=== PATIENT | male | born 1985 | race Caucasian/White ===

== ENCOUNTER 2016-10-08 16:26 | Emergency (ER) | payer OTHER ==
[2016-10-08 16:52] VITALS: BP 144/88; PULSE 83; RESP 18; TEMP 99.1
--- NOTE | 2016-10-08 17:11 | ED ---
Skin/Abscess/FB HPI - General Chief complaint: Skin/Abscess/Foreign Body Stated complaint: Bug flew in ear Time Seen by Provider: 10/08/16 17:00 Source: patient, RN notes reviewed Mode of arrival: ambulatory Limitations: no limitations - History of Present Illness Initial comments: 30-year-old male present emergency department for left ear possible bug in ear. Patient states that this happened approximately 30 or 40 minutes ago. Patient states that he felt some buzzing. He initially states that he felt a bug in his ear area and states he went over have it states it felt like it went in. Patient states the bleeding flapping sensation has gone he does have some irritation. Review of Systems ROS Statement: Those systems with pertinent positive or pertinent negative responses have been documented in the HPI. ROS Other: All systems not noted in ROS Statement are negative. Past Medical History Past Medical History: No Reported History History of Any Multi-Drug Resistant Organisms: None Reported Past Surgical History: No Surgical Hx Reported Past Psychological History: No Psychological Hx Reported Smoking Status: Never smoker Past Alcohol Use History: None Reported Past Drug Use History: None Reported General Exam Limitations: no limitations General appearance: alert, in no apparent distress Head exam: Present: atraumatic, normocephalic, normal inspection Eye exam: Present: normal appearance, PERRL, EOMI. Absent: scleral icterus, conjunctival injection, periorbital swelling ENT exam: Present: normal exam, normal oropharynx, mucous membranes moist, TM's normal bilaterally, normal external ear exam, other (No visualized foreign body or bug) Neck exam: Present: normal inspection, full ROM. Absent: tenderness, meningismus, lymphadenopathy Respiratory exam: Present: normal lung sounds bilaterally. Absent: respiratory distress, wheezes, rales, rhonchi, stridor Cardiovascular Exam: Present: regular rate, normal rhythm, normal heart sounds. Absent: systolic murmur, diastolic murmur, rubs, gallop, clicks Course Vital Signs 10/08/16 16:50 Temperature 99.1 F Pulse Rate 83 Respiratory 18 Rate Blood Pressure 144/88 O2 Sat by Pulse 100 Oximetry Medical Decision Making - Medical Decision Making 30-year-old male presented for possible bug in left ear canal. I did not visualize any blood. Patient it was flushed with saline patient well no foreign body removed patient states he does feel better at this time and states that she started feeling better prior. Patient be discharged at this time return parameters were discussed. Disposition Clinical Impression: Arthropod bite of left ear canal Disposition: HOME SELF-CARE Condition: Stable Instructions: Earache (ED) Additional Instructions: Please return to the Emergency Department if symptoms worsen or any other concerns. Referrals: None,Stated [Primary Care Provider] - 1-2 days Time of Disposition: 17:11
== END 2016-10-08 17:22 | disposition home or self-care (01) ==
LOC: EC 16:26
DX: S00.462A Insect bite (nonvenomous) of left ear, initial encounter (principal); W57.XXXA Bitten or stung by nonvenomous insect and other nonvenomous arthropods, initial encounter
CPT/HCPCS: 99282

== ENCOUNTER → 2016-10-22 | Outpatient (CLI) | payer OTHER ==
--- NOTE | 2016-10-22 15:55 | XR ---
EXAMINATION TYPE: XR spine complete AP and Lat DATE OF EXAM: 10/22/2016 COMPARISON: NONE HISTORY: Unspecified pain TECHNIQUE: Frontal and lateral views entire spine are acquired. Additional open mouth view upper cerv ical spine and swimmer's view cervical thoracic junction are acquired. FINDINGS: Spine shows satisfactory alignment without evidence of acute fracture or dislocation. Verte bral body heights and disc space heights are fairly well-maintained. No significant spurring is seen. Overlying soft tissue is unremarkable. C1-C2 articulation is within normal limits on the open mouth view. IMPRESSION: Unremarkable study
== END ==
LOC: RADXRMAIN 15:31
PROVIDERS: ATTEND Internal Medicine
DX: M54.5 Low back pain (principal); M54.6 Pain in thoracic spine; M54.2 Cervicalgia
CPT/HCPCS: 72082

== ENCOUNTER 2021-01-21 11:53 | Inpatient (IN) | payer OTHER ==
[2021-01-21 12:57] LABS: Basophils % (A) 0 %; Eosinophils # (A) 0.2 k/uL (0-0.7); Eosinophils % (A) 1 %; HCT 44.7 % (39.0-53.0); Lymphocytes # (A) 1.5 k/uL (1.0-4.8); Lymphocytes % (A) 11 %; MCH 30.4 pg (25.0-35.0); MCHC 33.6 g/dL (31.0-37.0); MCV 90.4 fL (80.0-100.0); Mean Platelet Volume 6.9; Monocytes # (A) 0.7 k/uL (0-1.0); Monocytes % (A) 5 %; Neutrophils % (A) 82 %; Platelet Count 273 k/uL (150-450); RBC 4.95 m/uL (4.30-5.90); WBC 13.5 k/uL (3.8-10.6)
--- NOTE | 2021-01-21 13:03 | XR ---
EXAMINATION TYPE: XR knee complete RT DATE OF EXAM: 01/21/2021 CLINICAL HISTORY: Right knee pain for one week. TECHNIQUE: Three views of the right knee are obtained. COMPARISON: None. FINDINGS: There is no acute fracture/dislocation evident in right knee. The tri-compartment joint s paces appear within normal limits. Significant spurring is seen. Mild to moderate subcutaneous edema over the medial aspect is noted. Additional soft tissue swelling superficial infrapatellar level is n oted. IMPRESSION: As above.
[2021-01-21 13:09] LABS: ALT 31 U/L (4-49); AST 38 U/L (17-59); African American GFR (CKD) >90 (>60 ml/min/1.73 sqM); Albumin 4.5 g/dL (3.5-5.0); Alkaline Phosphatase 136 U/L (38-126); Anion Gap 11 mmol/L; Blood Urea Nitrogen 8 mg/dL (9-20); C Reactive Protein 8.9 mg/dL (<1.0); Calcium 9.3 mg/dL (8.4-10.2); Carbon Dioxide 26 mmol/L (22-30); Chloride 102 mmol/L (98-107); Glucose 116 mg/dL (74-99); Non-African American GFR(CKD) >90 (>60 ml/min/1.73 sqM); Potassium 4.5 mmol/L (3.5-5.1); Sodium 139 mmol/L (137-145); Total Bilirubin 0.9 mg/dL (0.2-1.3); Total Protein 7.8 g/dL (6.3-8.2)
[2021-01-21 13:13] LABS: INR 0.8 (<1.2); Partial Thromboplastin Time 26.7 sec (22.0-30.0); Prothrombin Time 9.3 sec (9.0-12.0)
--- NOTE | 2021-01-21 13:41 | ED ---
Extremity Problem HPI - General Chief complaint: Extremity Problem,Nontraumatic Stated complaint: knee swelling, fever Time Seen by Provider: 01/21/21 12:19 Source: patient, RN notes reviewed Mode of arrival: ambulatory Limitations: no limitations - History of Present Illness Initial comments: 35-year-old male presents emergency department with chief complaint of right leg pain, redness and swelling. Patient states started after working on a pool stat es that he had kneepads on but states he noticed a small johnny on anterior surface of his knee he states that the redness and swelling has increased. He's had no definite drainage patient states her is discomfort, tightness of the skin when he moves but denies any definite joint pain. Patient has no history of skin infections. Denies any prior knee surgery. - Related Data Home Medications Medication Instructions Recorded Confirmed Ibuprofen [Advil] 800 mg PO Q8HR PRN 01/21/21 01/21/21 Allergies Allergy/AdvReac Type Severity Reaction Status Date / Time No Known Allergies Allergy Verified 01/21/21 12:33 Review of Systems ROS Statement: Those systems with pertinent positive or pertinent negative responses have been documented in the HPI. ROS Other: All systems not noted in ROS Statement are negative. Past Medical History Past Medical History: No Reported History History of Any Multi-Drug Resistant Organisms: None Reported Past Surgical History: No Surgical Hx Reported Past Psychological History: No Psychological Hx Reported Smoking Status: Never smoker Past Alcohol Use History: None Reported Past Drug Use History: Marijuana General Exam Limitations: no limitations General appearance: alert, in no apparent distress Head exam: Present: atraumatic, normocephalic, normal inspection Eye exam: Present: normal appearance, PERRL, EOMI. Absent: scleral icterus, conjunctival injection, periorbital swelling ENT exam: Present: normal exam, mucous membranes moist Respiratory exam: Present: normal lung sounds bilaterally. Absent: respiratory distress, wheezes, rales, rhonchi, stridor Cardiovascular Exam: Present: regular rate, normal rhythm, normal heart sounds. Absent: systolic murmur, diastolic murmur, rubs, gallop, clicks Extremities exam: Present: other (Right knee there is small scab noted over the prepatellar region, erythema and swelling that extends down to the calf and anterior surface of the knee increased warmth, tenderness with palpation) Course Vital Signs 01/21/21 01/21/21 12:03 14:23 Temperature 100.7 F H 98.1 F Pulse Rate 89 84 Respiratory 16 18 Rate Blood Pressure 148/91 122/81 O2 Sat by Pulse 99 97 Oximetry Medical Decision Making - Medical Decision Making Patient be admitted for right leg cellulitis, prepatellar bursitis and bursitis patient does not have joint involvement at this time he is febrile was started on vancomycin. - Lab Data Result diagrams: 01/21/21 12:33 01/21/21 12:33 Lab Results 01/21/21 01/21/21 01/21/21 Range/Units 12:33 12:33 12:33 WBC 13.5 H (3.8-10.6) k/uL RBC 4.95 (4.30-5.90) m/uL Hgb 15.0 (13.0-17.5) gm/dL Hct 44.7 (39.0-53.0) % MCV 90.4 (80.0-100.0) fL MCH 30.4 (25.0-35.0) pg MCHC 33.6 (31.0-37.0) g/dL RDW 12.0 (11.5-15.5) % Plt Count 273 (150-450) k/uL MPV 6.9 Neutrophils % 82 % Lymphocytes % 11 % Monocytes % 5 % Eosinophils % 1 % Basophils % 0 % Neutrophils # 11.0 H (1.3-7.7) k/uL Lymphocytes # 1.5 (1.0-4.8) k/uL Monocytes # 0.7 (0-1.0) k/uL Eosinophils # 0.2 (0-0.7) k/uL Basophils # 0.0 (0-0.2) k/uL PT 9.3 (9.0-12.0) sec INR 0.8 (<1.2) APTT 26.7 (22.0-30.0) sec Sodium 139 (137-145) mmol/L Potassium 4.5 (3.5-5.1) mmol/L Chloride 102 (98-107) mmol/L Carbon Dioxide 26 (22-30) mmol/L Anion Gap 11 mmol/L BUN 8 L (9-20) mg/dL Creatinine 0.67 (0.66-1.25) mg/dL Est GFR (CKD-EPI)AfAm >90 (>60 ml/min/1.73 sqM) Est GFR (CKD-EPI)NonAf >90 (>60 ml/min/1.73 sqM) Glucose 116 H (74-99) mg/dL Plasma Lactic Acid Yousif (0.7-2.0) mmol/L Calcium 9.3 (8.4-10.2) mg/dL Total Bilirubin 0.9 (0.2-1.3) mg/dL AST 38 (17-59) U/L ALT 31 (4-49) U/L Alkaline Phosphatase 136 H (38-126) U/L C-Reactive Protein 8.9 H (<1.0) mg/dL Total Protein 7.8 (6.3-8.2) g/dL Albumin 4.5 (3.5-5.0) g/dL 01/21/21 Range/Units 12:33 WBC (3.8-10.6) k/uL RBC (4.30-5.90) m/uL Hgb (13.0-17.5) gm/dL Hct (39.0-53.0) % MCV (80.0-100.0) fL MCH (25.0-35.0) pg MCHC (31.0-37.0) g/dL RDW (11.5-15.5) % Plt Count (150-450) k/uL MPV Neutrophils % % Lymphocytes % % Monocytes % % Eosinophils % % Basophils % % Neutrophils # (1.3-7.7) k/uL Lymphocytes # (1.0-4.8) k/uL Monocytes # (0-1.0) k/uL Eosinophils # (0-0.7) k/uL Basophils # (0-0.2) k/uL PT (9.0-12.0) sec INR (<1.2) APTT (22.0-30.0) sec Sodium (137-145) mmol/L Potassium (3.5-5.1) mmol/L Chloride (98-107) mmol/L Carbon Dioxide (22-30) mmol/L Anion Gap mmol/L BUN (9-20) mg/dL Creatinine (0.66-1.25) mg/dL Est GFR (CKD-EPI)AfAm (>60 ml/min/1.73 sqM) Est GFR (CKD-EPI)NonAf (>60 ml/min/1.73 sqM) Glucose (74-99) mg/dL Plasma Lactic Acid Yousif 0.8 (0.7-2.0) mmol/L Calcium (8.4-10.2) mg/dL Total Bilirubin (0.2-1.3) mg/dL AST (17-59) U/L ALT (4-49) U/L Alkaline Phosphatase (38-126) U/L C-Reactive Protein (<1.0) mg/dL Total Protein (6.3-8.2) g/dL Albumin (3.5-5.0) g/dL Disposition Clinical Impression: Fever, Septic prepatellar bursitis of right knee, Cellulitis of right leg Disposition: ADMITTED IP TO THIS HOSP Referrals: None,Stated [Primary Care Provider] - 1-2 days
[2021-01-21] MEDS ORDERED: VANCOMYCIN IV PER PHARMACY 1 EACH MISC MISCELLANE PRN (15:02)
[2021-01-21] MEDS ORDERED: ACETAMINOPHEN TAB 325 MG TAB PO PRN (15:04)
[2021-01-21] MEDS ORDERED: NALOXONE 0.4 MG/ML 1 ML VIAL IV PRN (15:04)
[2021-01-21] MEDS ORDERED: VANCOMYCIN 1,250 MG in SODIUM CHLORIDE 0.9% 250 ML IVPB STA (15:05)
[2021-01-21 15:15] LABS: Erythrocyte Sedimentation Rate 23 mm/hr (0-15)
[2021-01-21] MEDS: SODIUM CHLORIDE 0.9% 1,000 ML IV SCH (15:37)
--- NOTE | 2021-01-21 15:59 | P.HPIM ---
History of Present Illness H&P Date: 01/21/21 Chief Complaint: Right knee pain and swelling This is a 35-year-old male with no significant past medical history that presented to the emergency room with right knee pain and swelling. Patient said that he works as a [employer] and occasionally he is down on his knee doing some work and always wear a knee pad. Patient said that last week he was doing some work for approximately 3 hours on his knees while wearing any pads. Subsequently he noted worsening pain in his right knee and swelling that is been progressing over the last week. Patient reported that the pain was getting significantly worse today and he is unable to bend his knee so he decided to come to the hospital for further management. On presentation, patient had a low-grade fever of 100.7 with mild leukocytosis. X-ray showed no acute findings with some subcutaneous edema. Patient was started on IV vancomycin and plan is to admit him to the hospital for further management. Review of Systems Review of system: 14 points review of systems were obtained and were negative except to what were mentioned in the HPI. Past Medical History Past Medical History: No Reported History History of Any Multi-Drug Resistant Organisms: None Reported Past Surgical History: No Surgical Hx Reported Past Psychological History: No Psychological Hx Reported Smoking Status: Never smoker Past Alcohol Use History: None Reported Past Drug Use History: Marijuana Medications and Allergies Home Medications Medication Instructions Recorded Confirmed Type Ibuprofen [Advil] 800 mg PO Q8HR PRN 01/21/21 01/21/21 History Allergies Allergy/AdvReac Type Severity Reaction Status Date / Time No Known Allergies Allergy Verified 01/21/21 12:33 Physical Exam Vitals: Vital Signs Temp Pulse Resp BP Pulse Ox 01/21/21 14:23 98.1 F 84 18 122/81 97 01/21/21 12:03 100.7 F H 89 16 148/91 99 Intake and Output 01/21/21 01/21/21 01/21/21 06:59 14:59 22:59 Other: Weight 73.936 kg General: The patient is awake and alert, in no distress Eye: there is normal conjunctiva bilaterally. Neck: The neck is supple, there is no JVD. Cardiovascular: Normal S1-S2, no S3-S4, no murmurs. Respiratory: Lungs clear to auscultation bilaterally Gastrointestinal: Abdomen is soft, nontender Musculoskeletal: There is no pedal edema. There is significant swelling of the right knee compared to the left. R Knee is warm and very tender to touch with no evidence of erythema. No open wounds. Neurological:. Speech is normal. Skin: Skin is warm and dry Results CBC & Chem 7: 01/21/21 12:33 01/21/21 12:33 Labs: Abnormal Lab Results - Last 24 Hours (Table) 01/21/21 01/21/21 Range/Units 12:33 12:33 WBC 13.5 H (3.8-10.6) k/uL Neutrophils # 11.0 H (1.3-7.7) k/uL ESR 23 H (0-15) mm/hr BUN 8 L (9-20) mg/dL Glucose 116 H (74-99) mg/dL Alkaline Phosphatase 136 H (38-126) U/L C-Reactive Protein 8.9 H (<1.0) mg/dL Assessment and Plan Assessment: 1. Right knee bursitis with possible mild cellulitis and questionable knee ef fusion. I would continue IV antibiotic with IV cefazolin. CRP and ESR only mildly elevated. Intermittent ice packing. Motrin 800 mg 3 times a day. Consulted orthopedic for further evaluation.
[2021-01-21] MEDS: HYDROcodone/APAP 5-325MG 1 EACH TAB PO PRN ×2 (17:03→19:12)
[2021-01-21] MEDS: IBUPROFEN 800 MG TAB PO SCH (17:06)
[2021-01-22] MEDS ORDERED: VANCOMYCIN 1,250 MG in SODIUM CHLORIDE 0.9% 250 ML IVPB SCH ×2
[2021-01-22] MEDS: IBUPROFEN 800 MG TAB PO SCH ×4 (00:29→23:06)
[2021-01-22] MEDS: SODIUM CHLORIDE 0.9% 1,000 ML IV SCH (06:39)
[2021-01-22] MEDS: HYDROcodone/APAP 5-325MG 1 EACH TAB PO PRN ×3 (09:23→20:30)
--- NOTE | 2021-01-22 10:02 | P.PN ---
Progress Note - Text Progress Note Date: 01/22/21 I saw the patient and agree with the consult by Kinza Burgos PA-C. Briefly, the patient was working on his knees last week, which is unusual for him, and he developed a "pimple" over the anterior aspect of the knee. He popped the "pimple" a few days later and expressed a small amount of pus. His knee became progressively more painful, erythematous and he developed a subjective fever. Yesterday his leg became swollen, very painful and he had a difficult time walking so he presented to the ED. He was admitted under IM and was started on IV antibiotics. Orthopaedics was consulted. This morning the patient feels slightly better. He denies fevers, chills or generalized malaise. The is mild swelling, erythema and warmth over the prepatellar bursa. There is minimal knee effusion and minimal pain with PROM of the knee. There is boggy swelling over the prepatellar bursa, but no kenneth abs cess or collection of fluid. The swelling and tenderness extends medially over the knee. Distally, the knee is mildly swollen, warm and there is diffuse perspiration over the entire leg. There is no calf tenderness. His clinical picture is consistent with septic prepatellar bursitis and overlying cellulitis. He has no evidence of a agdaagux septic knee arthritis; there is no effusion and I don't recommend aspiration of the KNEE JOINT at this time. I would recommend 24-hours of IV antibiotics and will reassess tomorrow. If there is no improvement or he worsens, we could aspirate the bursa and p ossibly perform an I&D. I think that the leg pain and diffuse swelling is MOST LIKELY due to his prepatellar bursitis, but we will order a CT scan with contrast to rule out a deep abscess communicating with the bursa. I will defer antibiotic decisions to IM and infectious disease. We will continue to closely follow.
[2021-01-22 10:18] LABS: Basophils % (A) 0 %; Eosinophils # (A) 0.1 k/uL (0-0.7); Eosinophils % (A) 0 %; HCT 42.1 % (39.0-53.0); Lymphocytes # (A) 1.7 k/uL (1.0-4.8); Lymphocytes % (A) 12 %; MCH 30.4 pg (25.0-35.0); MCHC 33.2 g/dL (31.0-37.0); MCV 91.5 fL (80.0-100.0); Mean Platelet Volume 6.7; Monocytes # (A) 0.7 k/uL (0-1.0); Monocytes % (A) 5 %; Neutrophils % (A) 81 %; Platelet Count 317 k/uL (150-450); RDW 12.5 % (11.5-15.5); WBC 13.7 k/uL (3.8-10.6)
--- NOTE | 2021-01-22 10:22 | P.CNOR ---
History of Present Illness - [facility] Consult date: 01/22/21 History of present illness: This patient is a 35- year old male that is otherwise healthy that presented to [facility] ER on 01/21/21 with complaints of right knee pain. Patient states he was working on a pool, kneeling on his knees about a week ago. He was wearing knee pads. He noticed a small, what he thought, was an infected ingrown hair. He stated he expressed a small amount of pus from the area. He then experienced increasing anterior right knee erythema, swelling, and pain over the past week. He states he had a fever at home yesterday and was having trouble ambulating due to the pain, therefore he presented to [facility] ER for evaluation. Patient was admitted under the care of internal medicine and started on Vancomycin and Kefzol, and a consult was placed to orthopedics. Patient is seen and examined bedside this morning with Dr. Prince. Patient states his knee feels slightly better today compared to yesterday. He states he otherwise feels well and denies fevers, chills, nausea, vomiting. He tolerated his breakfast well. Vital signs stable. Past Medical History Past Medical History: No Reported History History of Any Multi-Drug Resistant Organisms: None Reported Past Surgical History: No Surgical Hx Reported Past Psychological History: No Psychological Hx Reported Smoking Status: Never smoker Past Alcohol Use History: None Reported Past Drug Use History: Marijuana Medications and Allergies Home Medications Medication Instructions Recorded Confirmed Type Ibuprofen [Advil] 800 mg PO Q8HR PRN 01/21/21 01/21/21 History Allergies Allergy/AdvReac Type Severity Reaction Status Date / Time No Known Allergies Allergy Verified 01/21/21 12:33 Physical Examination On examination, patient is sitting in the bed in no apparent distress. He is alert and orientated x3. His head appears normocephalic and atraumatic. His breathing appears non-labored. A focused examination of the right knee is conducted. On inspection of the right knee, there is a localized area of erythema to the prepatellar bursa. No obvious fluctuance. No drainage. No joint effusion. No erythema, warmth of the knee. Mild pain with PROM of the knee. Calf is soft and non-tender. Motor and sensory function intact right lower extremity. Right lower extremity is warm and well perfused. Results Right knee x-ray 01/22/21: No acute fractures. No acute bony abnormalities. - Labs Labs: Abnormal Lab Results - Last 24 Hours (Table) 01/21/21 01/21/21 Range/Units 12:33 12:33 WBC 13.5 H (3.8-10.6) k/uL Neutrophils # 11.0 H (1.3-7.7) k/uL ESR 23 H (0-15) mm/hr BUN 8 L (9-20) mg/dL Glucose 116 H (74-99) mg/dL Alkaline Phosphatase 136 H (38-126) U/L C-Reactive Protein 8.9 H (<1.0) mg/dL H & H 01/21/21 Range/Units 12:33 Hgb 15.0 (13.0-17.5) gm/dL Hct 44.7 (39.0-53.0) % Coagulation 01/21/21 Range/Units 12:33 INR 0.8 (<1.2) Result Diagrams: 01/22/21 09:59 01/21/21 12:33 Assessment and Plan Assessment: Septic prepatellar bursitis with cellulitis Plan: - Patient was examined with Dr. Prince. We will obtain a CT scan of the right lower extremity to rule-out deep abscess. - Antibiotics and medical management per admitting team. - We will follow patient closely and make recommendations as needed.
--- NOTE | 2021-01-22 10:42 | CT ---
EXAMINATION TYPE: CT lower leg RT w con DATE OF EXAM: 01/22/2021 COMPARISON: None HISTORY: Right leg swelling and redness at the knee. CT DLP: 1013.5 mGycm Automated exposure control for dose reduction was used. CONTRAST: Performed with IV Contrast, patient injected with 100 mL of Isovue 300. Contrast enhanced CT of the r ight lower extremity was performed from the right hip through the right ankle. FINDINGS: There is inflammatory change and edema noted at the level of the patellar tendon subcutaneous tissues . There is a 1.3 cm focal area of decreased attenuation seen best on sagittal image 52 and axial imag e 112. This is likely reflective of an early developing abscess. Mild subcutaneous edema extends down the anterior horne. No additional collections seen. No radiopaque foreign body. No bony destructive p rocess to suggest the osteomyelitis. No intramuscular collection. No suprapatellar joint effusion. IMPRESSION: INFLAMMATORY PHLEGMON IN THE ANTERIOR TO THE PATELLAR TENDON WITH INFLAMMATORY CHANGE EXTENDING TO TH E ANTERIOR HORNE. NOTED THERE IS A FOCAL AREA OF DECREASED ATTENUATION NOTED ABOVE WHICH MAY REF LECT DEVELOPING ABSCESS.
[2021-01-22] MEDS ORDERED: VANCOMYCIN IV PER PHARMACY 1 EACH MISC MISCELLANE PRN (16:38)
--- NOTE | 2021-01-22 16:46 | P.PN ---
Objective - Vital Signs Vital signs: Vital Signs Temp 99.2 F 01/22/21 14:00 Pulse 94 01/22/21 14:00 Resp 16 01/22/21 14:00 BP 125/79 01/22/21 14:00 Pulse Ox 98 01/22/21 14:00 Intake & Output 01/21/21 01/22/21 01/22/21 18:59 06:59 18:59 Weight 73.936 kg 73.936 kg Other: Voiding Method Toilet # Voids 1 - Exam General: The patient is awake and alert, in no distress Eye: there is normal conjunctiva bilaterally. Neck: The neck is supple, there is no JVD. Cardiovascular: Normal S1-S2, no S3-S4, no murmurs. Respiratory: Lungs clear to auscultation bilaterally Gastrointestinal: Abdomen is soft, nontender Musculoskeletal: There is no pedal edema. Neurological:. Speech is normal. Skin: Skin is warm and dry - Labs CBC & Chem 7: 01/22/21 09:59 01/21/21 12:33 Labs: Abnormal Lab Results - Last 24 Hours (Table) 01/22/21 Range/Units 09:59 WBC 13.7 H (3.8-10.6) k/uL Neutrophils # 11.0 H (1.3-7.7) k/uL Microbiology - Last 24 Hours (Table) 01/21/21 12:41 Blood Culture - Preliminary Blood No Growth after 24 hours 01/21/21 12:33 Blood Culture - Preliminary Blood No Growth after 24 hours Assessment and Plan Assessment: This is a 35-year-old male that presented to the emergency room with worsening right knee pain and swelling. Patient is a [employer] and his symptoms started after working on his knees for approximately 3 hours wearing a knee pad week prior to presentation. Patient was evaluated in the ER and admitted to the hospital for further management of his medical problems noted below. Patient was seen and evaluated this morning. His knee slightly better compared to yesterday. No documented fevers. 1. Right knee bursitis with possible mild cellulitis and questionable knee effusion. Started IV antibiotic with IV cefazolin. CRP and ESR only mildly elevated. Intermittent ice packing. Motrin 800 mg 3 times a day. Consulted orthopedic for further evaluation. Computed tomography scan showed inflammatory phlegmon anterior to the patellar tendon. There is a 1.3 centimeter focal area concerning for possible early abscess formation. Given no improvement in leukocytosis I would add IV van comycin and consult infectious disease for further evaluation. Awaiting further recommendations by orthopedic. Repeat lab work in the morning.
[2021-01-22] MEDS: VANCOMYCIN 1,250 MG in SODIUM CHLORIDE 0.9% 250 ML IVPB SCH (17:34)
--- NOTE | 2021-01-22 22:50 | P.CONS ---
History of Present Illness - Reason for Consult Consult date: 01/22/21 right knee abscess Requesting physician: Louisa Diaz - Chief Complaint right knee pain and redness x few days - History of Present Illness History of present illness : Patient is a 35-year-old male otherwise healthy presented to [facility] ER yesterday afternoon for evaluation of right leg pain swelling redness predominantly around the right knee area patient mention that his symptoms started after working on the portal vein he has been kneeling on patient has used kneepads however the patient noticed small johnny on the anterior surface of the knee which subsequently coming up to the hand he thought was more of a ingrowing hair with the patient squeeze small amount of pus came out afterwards the area becoming more swollen red and painful patient describes the pain to be more of a throbbing almost a (especially when he walks on it some relief with the rest patient has been running a fever and did have some chills on presentation the hospital he did have fever 100.7 degree form height mild tachycardia did have white count of 13 point 5 repeat is 13.7 with a left shift creatinine has been normal infante PCR was negative blood cultures obt ained so far negative patient did have x-rays of the knee no acute fracture dislocation soft tissues swelling superficial to the infrapatellar level patient has been evaluated by orthopedics this morning a CT has been done which shows inflammatory phlegmon in the anterior to the patellar tendon with inflammatory changes extending to the anterior horne focal area of decreased attenuation suspicious for an abscess patient is currently being treated with the vancomycin and cefazolin infectious disease was consulted for further management of antibiotic therapy Review of system: CONSTITUTIONAL: Positive for weakness along with the fever. EYES: No complaint. ENT: No complaint. RESPIRATORY: No complaint. CARDIOVASCULAR: No complaint. GENITOURINARY: No complaint. GASTROINTESTINAL: No complaint. MUSCULOSKELETAL: As per history of present illness INTEGUMENTARY: As per history of present illness PSYCHOLOGIC: No complaint. ENDOCRINE: No complaint. NEUROLOGIC: No complaint. Past medical history : Reviewed, documented below Past surgical history : Reviewed, documented below Social history: Reviewed, documented below Medications: Reviewed, as documented below EXAMINATION: Vital sigans= Reviewed and documented below GENERAL DESCRIPTION: Middle-aged male lying in bed, no distress. No tachypnea or accessory muscle of respiration use. HEENT: Shows Pallor , no scleral icterus. Oral mucous membrane is dry. NECK: Trachea central, no thyromegaly. LUNGS: Unlabored breathing. Clear to auscultation anteriorly. No wheeze or crackle. HEART: S1, S2, regular rate and rhythm. ABDOMEN: Soft, no tenderness , guarding or rigidity EXTREMITIES: No edema of feet. Right lower knee area did have a swelling redness and warmth to touch as well as tender no drainage SKIN: No rash, no masses palpable. NEUROLOGICAL: The patient is awake, alert, oriented x3, mood and affect normal. LABS AND RADIOLOGY: Reviewed results see below Assessment : Patient presented to hospital with sepsis in this patient who did have a fever elevated white count source is right knee prepatellar bursitis and will need to cover for the gram-positive skin angelica likely strep and Staph aureus Plan: 1-patient will benefit from right knee bursectomy and deep culture 2-vancomycin pharmacy to dose with a target trough of 15 while watching kidney function and Vanco trough closely. 3-RN has been instructed if the area started to drain to pink aerobic culture We will follow on clinical condition and cultures to further adjust medication if needed Thank you for this consultation we will follow the patient along with you Past Medical History Past Medical History: No Reported History History of Any Multi-Drug Resistant Organisms: None Reported Past Surgical History: No Surgical Hx Reported Past Psychological History: No Psychological Hx Reported Smoking Status: Never smoker Past Alcohol Use History: None Reported Past Drug Use History: Marijuana Medications and Allergies Home Medications Medication Instructions Recorded Confirmed Type Ibuprofen [Advil] 800 mg PO Q8HR PRN 01/21/21 01/21/21 History Allergies Allergy/AdvReac Type Severity Reaction Status Date / Time No Known Allergies Allergy Verified 01/21/21 12:33 Physical Exam Vitals: Vital Signs Temp Pulse Pulse Resp BP BP Pulse Ox 01/22/21 14:00 99.2 F 94 16 125/79 98 01/22/21 08:00 98.7 F 79 18 119/68 95 01/22/21 02:00 98.8 F 84 16 107/68 98 01/21/21 20:00 99.2 F 93 17 126/79 98 01/21/21 18:28 100 F H 87 18 138/83 99 Intake and Output 01/22/21 01/22/21 01/22/21 06:59 14:59 22:59 Other: # Voids 1 Results CBC & Chem 7: 01/22/21 09:59 01/21/21 12:33 Labs: Abnormal Lab Results - Last 24 Hours (Table) 01/22/21 Range/Units 09:59 WBC 13.7 H (3.8-10.6) k/uL Neutrophils # 11.0 H (1.3-7.7) k/uL Microbiology - Last 24 Hours (Table) 01/21/21 12:41 Blood Culture - Preliminary Blood No Growth after 24 hours 01/21/21 12:33 Blood Culture - Preliminary Blood No Growth after 24 hours
[2021-01-23] MEDS: VANCOMYCIN 1,250 MG in SODIUM CHLORIDE 0.9% 250 ML IVPB SCH ×3 (01:02→16:30)
[2021-01-23 06:38] LABS: African American GFR (CKD) >90 (>60 ml/min/1.73 sqM); Non-African American GFR(CKD) >90 (>60 ml/min/1.73 sqM)
[2021-01-23] MEDS: IBUPROFEN 800 MG TAB PO SCH (07:48)
[2021-01-23] MEDS: HYDROcodone/APAP 5-325MG 1 EACH TAB PO PRN ×3 (07:48→20:22)
--- NOTE | 2021-01-23 09:17 | P.PN ---
Progress Note - Text Progress Note Date: 01/23/21 Patient was seen and examined. He feels about the same this morning. His prepatellar bursa opened yesterday and is draining kenneth pus. His CT scan showed a small developing abscess over the anterior aspect of the patellar tendon. I will plan on taking him to the OR today for a formal I&D this afternoon of the prepatellar bursa. We will place an incisional wound VAC, change the dressing on POD#1 and then turn over wound care to infectious disease. The patient agrees with this plan and will be NPO starting now.
--- NOTE | 2021-01-23 13:51 | PN ---
PROGRESS NOTE DATE OF SERVICE: 01/23/2021 REASON FOR FOLLOWUP: Right knee septic prepatellar bursitis. INTERVAL HISTORY: The patient is afebrile. The patient mentioned that they decided to drain last night. Apparently culture has been obtained. The patient denies having any chest pain or shortness of breath or cough. No abdominal pain or diarrhea. PHYSICAL EXAMINATION: Blood pressure is 173/85, pulse of 77, temperature 98. He is 96% on room air. GENERAL DESCRIPTION: General description is a middle-aged male lying in bed in no distress. RESPIRATORY SYSTEM: Unlabored breathing. Clear to auscultation anteriorly. HEART: S1, S2. Regular rate and rhythm. ABDOMEN: Soft. No tenderness. Right knee is currently dressed. No drainage on the dressing. LABS: Creatinine 0.57. Culture so far negative. DIAGNOSTIC IMPRESSION AND PLAN: Patient with right knee septic prepatellar bursitis, for bursectomy this evening and deep cultures. The patient is covered with vancomycin and cefazolin; to continue while waiting for the culture to finalize and monitor clinical course closely. Continue supportive care. MMODL / IJN: [id number] /
--- NOTE | 2021-01-23 13:52 | P.PN ---
Subjective Patient noted that some drainage out of the right knee mostly purulent. Objective - Vital Signs Vital signs: Vital Signs Temp 98.0 F 01/23/21 09:33 Pulse 77 01/23/21 09:33 Resp 17 01/23/21 09:33 BP 133/85 01/23/21 09:33 Pulse Ox 96 01/23/21 09:33 Intake & Output 01/22/21 01/23/21 01/23/21 18:59 06:59 18:59 Intake Total 300 Balance 300 Intake: Intake, IV Titration 300 Amount Vancomycin 1,250 mg In 250 Sodium Chloride 0.9% 250 ml @ 125 mls/hr IVPB Q8H [facility] Rx#:[id number] ceFAZolin 2 gm In Sodium 50 Chloride 0.9% 50 ml @ 100 mls/hr IVPB Q8HR [facility] Rx# :[id number] Other: # Voids 3 2 - Exam General: The patient is awake and alert, in no distress Eye: there is normal conjunctiva bilaterally. Neck: The neck is supple, there is no JVD. Cardiovascular: Normal S1-S2, no S3-S4, no murmurs. Respiratory: Lungs clear to auscultation bilaterally Gastrointestinal: Abdomen is soft, nontender Musculoskeletal: There is no pedal edema. Neurological:. Speech is normal. Skin: Skin is warm and dry - Labs CBC & Chem 7: 01/22/21 09:59 01/23/21 05:59 Labs: Abnormal Lab Results - Last 24 Hours (Table) 01/23/21 Range/Units 05:59 Creatinine 0.57 L (0.66-1.25) mg/dL Microbiology - Last 24 Hours (Table) 01/21/21 12:41 Blood Culture - Preliminary Blood No Growth after 24 hours 01/21/21 12:33 Blood Culture - Preliminary Blood No Growth after 24 hours Assessment and Plan Assessment: This is a 35-year-old male that presented to the emergency room with worsening right knee pain and swelling. Patient is a [place] and his symptoms started after working on his knees for approximately 3 hours wearing a knee pad week prior to presentation. Patient was evaluated in the ER and admitted to the hospital for further management of his medical problems noted below. Patient was seen and evaluated this morning. His knee slightly better compared to yesterday. No documented fevers. 1. Right knee bursitis with cellulitis and questionable knee effusion. Started IV antibiotic with IV cefazolin and vancomycin. Managed by infectious disease.. CRP and ESR only mildly elevated. Consulted orthopedic for further evaluation. Plan for I&D in the OR tomorrow. Computed tomography scan showed inflammatory phlegmon anterior to the patellar tendon. There is a 1.3 centimeter focal area concerning for possible early abscess formation. Obtain ultrasound to rule out DVT.
--- NOTE | 2021-01-23 14:56 | US ---
EXAMINATION TYPE: US venous doppler duplex LE RT DATE OF EXAM: 01/23/2021 2:28 PM COMPARISON: NONE CLINICAL HISTORY: r/o DVT. Right leg redness/ swelling SIDE PERFORMED: Right TECHNIQUE: The lower extremity deep venous system is examined utilizing real time linear array sonog leona with graded compression, doppler sonography and color-flow sonography. VESSELS IMAGED: Common Femoral Vein Deep Femoral Vein Greater Saphenous Vein * Femoral Vein Popliteal Vein Small Saphenous Vein * Proximal Calf Veins (* superficial vessels) Right Leg: Negative for DVT IMPRESSION: No evidence for DVT at this time.
[2021-01-23] MEDS ORDERED: IV FLUID CONTINUATION 1,000 ML IV ONE (16:10)
[2021-01-23] MEDS ORDERED: PROPOFOL 10 MG/ML 20 ML VIAL IV ONE (16:22)
[2021-01-23] MEDS ORDERED: LIDOCAINE 1% INJ 10MG/ML (20 ML MDV) ONE (16:22)
[2021-01-23] MEDS ORDERED: fentaNYL (PF) 50 MCG/ML 2 ML AMP ONE (16:22)
[2021-01-23] MEDS ORDERED: MIDAZOLAM 2 MG/2 ML VIAL ONE (16:22)
[2021-01-23] MEDS ORDERED: DEXAMETHASONE SOD PHOSPHATE 10 MG/ML 1 ML VIAL IV ONE (16:30)
[2021-01-23] MEDS ORDERED: ONDANSETRON 4 MG/2 ML VIAL IVP ONE (16:30)
[2021-01-23] MEDS ORDERED: LACTATED RINGERS 1,000 ML IV ONE (17:31)
[2021-01-23] MEDS ORDERED: SENNOSIDES-DOCUSATE SODIUM 1 EACH TAB PO PRN (17:40)
[2021-01-23] MEDS: HYDROmorphone 0.5 MG/0.5 ML SYRINGE IVP ONE ×3 (17:43→17:54)
--- NOTE | 2021-01-23 17:53 | P.OP ---
Date of Procedure: 01/23/21 Preoperative Diagnosis: 1. Right prepatellar tendon abscess and surrounding cellulitis Postoperative Diagnosis: 1. Right prepatellar tendon abscess and surrounding cellulitis Procedure(s) Performed: 1. Irrigation debridement right prepatellar tendon abscess (incisional debridement using a scalpel of nonviable skin and subcutaneous tissue down to the patellar tendon) 2. Application of negative pressure incisional wound VAC less than 50 cm, right knee 3. Right knee aspiration Anesthesia: PRINCE Surgeon: Edis Prince Intermission Coordinator #1: Kinza Burgos Estimated Blood Loss (ml): 20 IV fluids (ml): 1,000 Pathology: other (Deep cultures) Condition: stable Disposition: PACU Indications for Procedure: The patient is a very pleasant to see healthy 35-year-old male who about a week ago was doing some work on his knees. He developed swelling and what he described as a pimple. He hopped the pimple over his knee and expressed a small amount of pus. Over the next several days his knee became increasingly painful and swollen. It got to the point that he developed fevers, chills, and difficulty walking. He was admitted to the emergency department. Orthopedics was consulted. I met with the patient yesterday. He had NO EVIDENCE of a septic knee joint as there was no effusion present. He did have erythema, swelling, and boggy fluctuance over the anterior aspect of the patellar tendon. A computed tomography scan with contrast showed an abscess developing anterior to the patellar tendon. Last night the abscess opened and began draining kenneth pus. The patient was made nothing by mouth this morning and I discussed with him the need for irrigation and debridement in the operating room. We discussed potential risks and Occasions of surgery including but not limited to risks from anesthesia, superficial or deep infection, damage to blood vessels or nerves, extension of the infection into the knee joint, possibly need for further surgery. He understands these risks particular continue to worsen infection needing further treatment. He provided his consent to go forward with surgery. Operative Findings: 1. There was NO EVIDENCE of a septic knee joint. There was NO EFFUSION. I aspirated the knee at the completion of the procedure and 1 mL of clear fluid was aspirated. 2. Small abscess cavity anterior to the patellar tendon. Description of Procedure: The patient was identified in preoperative holding and the correct right leg was marked with my initials. I reviewed the consent form with the patient and all of his questions were answered. The patient was then brought back to the operating room. He was positioned on the or table where general anesthetic was given. Preoperative antibiotics were given. A tourniquet was applied to the proximal aspect of the right leg was not used during the case. The right leg was then prepped and draped in standard sterile fashion. Prior to starting surgery timeout was performed identifying the correct patient, operative extremity, and procedure. I began by extending the small open wound over the patellar tendon proximally and distally in longitudinal fashion. Immediately upon opening the wound and abscess was encountered and there was a large amount of purulence expressed. Cultures were taken. The abscess cavity was opened. It tracked medially. All nonviable skin and subcutaneous tissue down to the patellar tendon were sharply debrided with a scalpel. A debridement was performed until all nonviable tissue had been removed. 3 L of sterile saline was used to irrigate the wound using pulsatile lavage. Following the irrigation and debridement the wound appeared clean. The wound was gently reapproximated using 0 Prolene, 2-0 Prolene, and 2- 0 nylon sutures. An incisional wound VAC was placed over the incision and suction was set 125 mmHg. Once the incision was sealed I reprepped the superolateral aspect of the knee with ChloraPrep. An 18-gauge needle was inserted into the knee joint. Approximately 1 mL of clear fluid consistent with healthy appearing synovial fluid was aspirated. There was no evidence of an effusion both clinically or upon aspiration. To be thorough the fluid was sent for cultures. The patient was then extubated, history of her taken off, he was transferred to a [place] and brought to recovery having tolerated the procedure well. Plan: The patient can weight-bear as tolerated on his right leg. We will leave his surgical dressing on until tomorrow at which point our service will remove it. I will defer further wound management and antibiotic choice to infectious disease and internal medicine. We will continue to closely follow the patient while he is an inpatient.
[2021-01-23] MEDS: IBUPROFEN 800 MG TAB PO PRN (23:24)
[2021-01-24] MEDS: VANCOMYCIN 1,250 MG in SODIUM CHLORIDE 0.9% 250 ML IVPB SCH ×3 (01:08→16:05)
[2021-01-24] MEDS: HYDROcodone/APAP 5-325MG 1 EACH TAB PO PRN ×4 (01:12→18:05)
[2021-01-24] MEDS ORDERED: VANCOMYCIN TROUGH DUE 1 EACH MISC MISCELLANE ONE (08:00)
[2021-01-24 10:47] LABS: African American GFR (CKD) >90 (>60 ml/min/1.73 sqM); Non-African American GFR(CKD) >90 (>60 ml/min/1.73 sqM)
--- NOTE | 2021-01-24 12:13 | P.PN ---
Subjective Progress Note Date: 01/24/21 Principal diagnosis: Septic prepatellar bursitis right knee. This is a 35-year-old gentleman who is postop day #1 status post incision and drainage of the right knee prepatellar bursa. He has no new complaints or concerns today. Vital signs are stable. Microbiology is pending. Objective - Vital Signs Vital signs: Vital Signs Temp 97.6 F 01/24/21 07:56 Pulse 62 01/24/21 07:56 Resp 18 01/24/21 07:56 BP 106/53 01/24/21 07:56 Pulse Ox 99 01/24/21 07:56 Intake & Output 01/23/21 01/24/21 01/24/21 18:59 06:59 18:59 Intake Total 1150 Output Total 20 Balance 1130 Intake: IV 850 Intake, IV Titration 300 Amount Vancomycin 1,250 mg In 250 Sodium Chloride 0.9% 250 ml @ 125 mls/hr IVPB Q8H [facility] Rx#:[id number] ceFAZolin 2 gm In Sodium 50 Chloride 0.9% 50 ml @ 100 mls/hr IVPB Q8HR [facility] Rx# :[id number] Output: Estimated Blood Loss 20 Other: Voiding Method Toilet # Voids 2 # Bowel Movements 0 - Exam This is a pleasant 35-year-old gentleman in no acute distress. He is alert and oriented 3. Exam of the right knee reveals a wound VAC in place. The wound VAC is removed and sutures are intact. There is minimal erythema. There is minimal swelling. He is able to straight leg raise. No knee effusion noted. He has full foot and ankle motion without difficulty or pain. Neurovascular status to the lower extremity is intact. - Labs CBC & Chem 7: 01/22/21 09:59 01/24/21 07:57 Labs: Abnormal Lab Results - Last 24 Hours (Table) 01/24/21 Range/Units 07:57 Creatinine 0.52 L (0.66-1.25) mg/dL Microbiology - Last 24 Hours (Table) 01/22/21 01:30 Gram Stain - Preliminary Knee - Right Wound Culture - Preliminary 01/23/21 17:20 Gram Stain - Preliminary Knee - Right Wound Culture - Preliminary 01/23/21 17:20 Gram Stain - Preliminary Aspirate Body Fluid Culture - Preliminary 09/24/21 17:20 Anaerobic Culture - Preliminary Aspirate 01/23/21 17:20 Fungal Culture - Preliminary Aspirate 01/23/21 17:20 Anaerobic Culture - Preliminary Knee - Right 01/23/21 17:20 Fungal Culture - Preliminary Aspirate 01/21/21 12:41 Blood Culture - Preliminary Blood No Growth after 48 hours 01/21/21 12:33 Blood Culture - Preliminary Blood No Growth after 48 hours 01/22/21 01:30 Anaerobic Culture - Preliminary Knee - Right Assessment and Plan (1) Cellulitis of right leg Current Visit: Yes Status: Acute Code(s): L03.115 - CELLULITIS OF RIGHT LOWER LIMB SNOMED Code(s): 482358823 (2) Fever Current Visit: Yes Status: Acute Code(s): R50.9 - FEVER, UNSPECIFIED SNOMED Code(s): 005202294 (3) Septic prepatellar bursitis of right knee Current Visit: Yes Status: Acute Code(s): M71.161 - OTHER INFECTIVE BUR SITIS, RIGHT KNEE SNOMED Code(s): 8105659507818306 Plan: The clinical findings are discussed the patient. We are waiting final cultures. He is to continue on the vancomycin. Dressing is changed today. Wound VAC was discontinued. He may be discharged to home when cleared medically and home antibiotics are determined.
--- NOTE | 2021-01-24 14:07 | P.PN ---
Subjective Patient is doing well today. Right knee wrapped with Phu wrap with wound VAC in place. Objective - Vital Signs Vital signs: Vital Signs Temp 97.6 F 01/24/21 07:56 Pulse 62 01/24/21 07:56 Resp 18 01/24/21 07:56 BP 106/53 01/24/21 07:56 Pulse Ox 99 01/24/21 07:56 Intake & Output 01/23/21 01/24/21 01/24/21 18:59 06:59 18:59 Intake Total 1150 Output Total 20 Balance 1130 Intake: IV 850 Intake, IV Titration 300 Amount Vancomycin 1,250 mg In 250 Sodium Chloride 0.9% 250 ml @ 125 mls/hr IVPB Q8H [facility] Rx#:[id number] ceFAZolin 2 gm In Sodium 50 Chloride 0.9% 50 ml @ 100 mls/hr IVPB Q8HR [facility] Rx# :[id number] Output: Estimated Blood Loss 20 Other: Voiding Method Toilet # Voids 2 # Bowel Movements 0 - Exam General: The patient is awake and alert, in no distress Eye: there is normal conjunctiva bilaterally. Neck: The neck is supple, there is no JVD. Cardiovascular: Normal S1-S2, no S3-S4, no murmurs. Respiratory: Lungs clear to auscultation bilaterally Gastrointestinal: Abdomen is soft, nontender Musculoskeletal: There is no pedal edema. Neurological:. Speech is normal. Skin: Skin is warm and dry - Labs CBC & Chem 7: 01/22/21 09:59 01/24/21 07:57 Labs: Abnormal Lab Results - Last 24 Hours (Table) 01/24/21 Range/Units 07:57 Creatinine 0.52 L (0.66-1.25) mg/dL Microbiology - Last 24 Hours (Table) 01/22/21 01:30 Gram Stain - Preliminary Knee - Right Wound Culture - Preliminary Presumptive MRSA 01/23/21 17:20 Gram Stain - Preliminary Knee - Right Wound Culture - Preliminary 01/23/21 17:20 Gram Stain - Preliminary Aspirate Body Fluid Culture - Preliminary 01/23/21 17:20 Anaerobic Culture - Preliminary Aspirate 01/23/21 17:20 Fungal Culture - Preliminary Aspirate 01/23/21 17:20 Anaerobic Culture - Preliminary Knee - Right 01/23/21 17:20 Fungal Culture - Preliminary Aspirate 01/21/21 12:41 Blood Culture - Preliminary Blood No Growth after 48 hours 01/21/21 12:33 Blood Culture - Preliminary Blood No Growth after 48 hours 01/22/21 01:30 Anaerobic Culture - Preliminary Knee - Right Assessment and Plan Assessment: This is a 35-year-old male that presented to the emergency room with worsening right knee pain and swelling. Patient is a [place] and his symptoms started after working on his knees for approximately 3 hours wearing a knee pad week prior to presentation. Patient was evaluated in the ER and admitted to the hospital for further management of his medical problems noted below. Patient was seen and evaluated this morning. His knee slightly better compared to yesterday. No documented fevers. 1. Right knee bursitis with cellulitis and abscess: Started IV antibiotic with IV cefazolin and vancomycin. Managed by infectious disease.. CRP and ESR only mildly elevated. Consulted orthopedic for further evaluation. Status post I&D in the OR on 01/23 with wound VAC placement Today, I reviewed his medication list and lab work results. Awaiting culture results. Doppler ultrasound was negative for DVT. Continue supportive care otherwise. With bearing as tolerated. Anticipate discharge home within the next couple of days.
[2021-01-24] MEDS: IBUPROFEN 800 MG TAB PO PRN (16:04)
--- NOTE | 2021-01-24 20:12 | PN ---
PROGRESS NOTE DATE OF SERVICE: 01/24/2021 REASON FOR FOLLOWUP: Right knee septic bursitis MRSA. INTERVAL HISTORY: The patient is afebrile. The patient is currently breathing comfortably. Pain to the right knee is currently controlled. No chest pain, shortness of breath or cough. No abdominal pain or diarrhea. PHYSICAL EXAMINATION: Blood pressure 149/90 with a pulse of 88, temperature 99.2. He is 97% on 2 L. General description is a middle-aged male lying in bed in no distress. Respiratory system: Unlabored breathing, clear to auscultation anteriorly. Heart S1, S2. Regular rate and rhythm. Abdomen: Soft. No tenderness. Right knee is currently dressed. No obvious drainage on the dressing. LABS: Creatinine 0.52. Culture with presumptive MRSA. DIAGNOSTIC IMPRESSION AND PLAN: Patient with right knee septic prepatellar bursitis status post bursectomy. Culture with presumptive MRSA. To continue with vancomycin for 7 days. Continue discharge antibiotic based on clinical response and cultures. Continue supportive care. MMODL / IJN: [id number] /
[2021-01-25] MEDS: VANCOMYCIN 1,250 MG in SODIUM CHLORIDE 0.9% 250 ML IVPB SCH ×4 (00:11→23:54)
[2021-01-25] MEDS: HYDROcodone/APAP 5-325MG 1 EACH TAB PO PRN ×4 (00:14→23:53)
--- NOTE | 2021-01-25 11:25 | P.PN ---
Subjective Progress Note Date: 01/25/21 Principal diagnosis: Septic prepatellar bursitis right knee. This is a 35-year-old gentleman who is postop day#2 status post incision and drainage of the right knee prepatellar bursa. He has no new complaints or concerns today. Vital signs are stable. Operative cultures are pending. Preoperative culture is showing MRSA. Objective - Vital Signs Vital signs: Vital Signs Temp 98.3 F 01/25/21 07:49 Pulse 76 01/25/21 07:49 Resp 18 01/25/21 07:49 BP 138/84 01/25/21 07:49 Pulse Ox 98 01/25/21 07:49 Intake & Output 01/24/21 01/25/21 01/25/21 18:59 06:59 18:59 Other: Voiding Method Toilet # Voids 2 2 # Bowel Movements 0 - Exam This is a pleasant 35-year-old gentleman in no acute distress. He is alert and oriented 3. Exam of the right knee reveals sutures intact. There is minimal erythema. There is minimal swelling. He is able to straight leg raise. No knee effusion noted. He has full foot and ankle motion without difficulty or pain. Neurovascular status to the lower extremity is intact. - Labs CBC & Chem 7: 01/22/21 09:59 01/24/21 07:57 Labs: Microbiology - Last 24 Hours (Table) 01/22/21 01:30 Gram Stain - Final Knee - Right Wound Culture - Final Methicillin resist S. aureus 01/23/21 17:20 Gram Stain - Preliminary Aspirate Body Fluid Culture - Preliminary 01/21/21 12:41 Blood Culture - Preliminary Blood No Growth after 72 hours 01/21/21 12:33 Blood Culture - Preliminary Blood No Growth after 72 hours 01/23/21 17:20 Gram Stain - Preliminary Knee - Right Wound Culture - Preliminary Assessment and Plan (1) Cellulitis of right leg Current Visit: Yes Status: Acute Code(s): L03.115 - CELLULITIS OF RIGHT LOWER LIMB SNOMED Code(s): 584258835 (2) Fever Current Visit: Yes Status: Acute Code(s): R50.9 - FEVER, UNSPECIFIED SNOMED Code(s): 340469778 (3) Septic prepatellar bursitis of right knee Current Visit: Yes Status: Acute Code(s): M71.161 - OTHER INFECTIVE BURSITIS, RIGHT KNEE SNOMED Code(s): 2516441569055165 Plan: The clinical findings are discussed the patient. We are waiting final cultures. He is to continue on the vancomycin. Dressing is changed today. Wound VAC was discontinued. He may be discharged to home when cleared medically and home antibiotics are determined.
[2021-01-25 12:11] LABS: Basophils # (A) 0.03 X 10*3/uL (0.00-0.10); Basophils % (A) 0.4 %; Eosinophils # (A) 0.07 X 10*3/uL (0.04-0.35); Eosinophils % (A) 0.9 %; HCT 39.5 % (39.6-50.0); HGB 13.2 g/dL (13.0-17.0); Lymphocytes # (A) 1.99 X 10*3/uL (0.90-5.00); Lymphocytes % (A) 25.3 %; MCH 29.7 pg (27.0-32.0); MCHC 33.4 g/dL (32.0-37.0); Mean Platelet Volume 9.8 fL (9.5-12.2); Monocytes % (A) 6.4 %; Neutrophils # (A) 5.25 X 10*3/uL (1.80-7.70); Neutrophils % (A) 66.6 %; Platelet Count 402 X 10*3/uL (140-440); RBC 4.44 X 10*6/uL (4.40-5.60); RDW 12.2 % (11.5-14.5); WBC 7.87 X 10*3/uL (4.50-10.00)
[2021-01-25 12:41] LABS: African American GFR (CKD) 142.7 (60.0-200.0); Anion Gap 2.5 mmol/L (4.00-12.00); Calcium 9.4 mg/dL (8.7-10.3); Carbon Dioxide 30.5 mmol/L (21.6-31.8); Non-African American GFR(CKD) 123.1 (60.0-200.0); Potassium 4.3 mmol/L (3.5-5.5)
--- NOTE | 2021-01-25 14:11 | P.PN ---
Subjective Patient is doing well today. He is looking forward to be discharged home when possible. Objective - Vital Signs Vital signs: Vital Signs Temp 98.3 F 01/25/21 07:49 Pulse 76 01/25/21 07:49 Resp 18 01/25/21 07:49 BP 138/84 01/25/21 07:49 Pulse Ox 98 01/25/21 07:49 Intake & Output 01/24/21 01/25/21 01/25/21 18:59 06:59 18:59 Other: Voiding Method Toilet # Voids 2 2 # Bowel Movements 0 - Exam General: The patient is awake and alert, in no distress Eye: there is normal conjunctiva bilaterally. Neck: The neck is supple, there is no JVD. Cardiovascular: Normal S1-S2, no S3-S4, no murmurs. Respiratory: Lungs clear to auscultation bilaterally Gastrointestinal: Abdomen is soft, nontender Musculoskeletal: There is no pedal edema. Neurological:. Speech is normal. Skin: Skin is warm and dry - Labs CBC & Chem 7: 01/25/21 06:50 01/25/21 06:50 Labs: Abnormal Lab Results - Last 24 Hours (Table) 01/25/21 01/25/21 Range/Units 06:50 06:50 Hct 39.5 L (39.6-50.0) % Chloride 110 H (96-109) mmol/L Anion Gap 2.50 L (4.00-12.00) mmol/L BUN 7.0 L (9.0-27.0) mg/dL BUN/Creatinine Ratio 10.00 L (12.00-20.00) Ratio Microbiology - Last 24 Hours (Table) 01/22/21 01:30 Anaerobic Culture - Preliminary Knee - Right 01/22/21 01:30 Gram Stain - Final Knee - Right Wound Culture - Final Methicillin resist S. aureus 01/23/21 17:20 Gram Stain - Preliminary Aspirate Body Fluid Culture - Preliminary 01/21/21 12:41 Blood Culture - Preliminary Blood No Growth after 72 hours 01/21/21 12:33 Blood Culture - Preliminary Blood No Growth after 72 hours 01/23/21 17:20 Gram Stain - Preliminary Knee - Right Wound Culture - Preliminary Assessment and Plan Assessment: This is a 35-year-old male that presented to the emergency room with worsening right knee pain and swelling. Patient is a [place] and his symptoms started after working on his knees for approximately 3 hours wearing a knee pad week prior to presentation. Patient was evaluated in the ER and admitted to the hospital for further management of his medical problems noted below. Patient was seen and evaluated this morning. His knee slightly better compared to yesterday. No documented fevers. 1. Right knee bursitis with cellulitis and abscess: Culture grew MRSA. Started IV antibiotic with IV cefazolin and vancomycin. I would discontinue cefazolin today. CRP and ESR only mildly elevated. Status post I&D in the OR by orthopedic on 01/23 with wound VAC placement. Today, I reviewed his medication list and lab work results. Awaiting culture results. Doppler ultrasound was negative for DVT. Continue supportive care otherwise. With bearing as tolerated. Anticipate discharge home within the next couple of days.
--- NOTE | 2021-01-25 19:56 | PN ---
PROGRESS NOTE DATE OF SERVICE: 01/25/2021. REASON FOR FOLLOWUP: Right knee septic prepatellar bursitis. INTERVAL HISTORY: The patient is afebrile. The patient is breathing comfortably. The patient denies having any chest pain, shortness of breath or cough. No abdominal pain. Overall pain to the right knee area has improved. PHYSICAL EXAMINATION: Blood pressure 144/81 with a pulse of 69, temperature 98.7. He is 99% on room air. General description is a middle-aged male up in the chair in no distress. Respiratory system: Unlabored breathing, clear to auscultation anteriorly. Heart S1, S2. Regular rate and rhythm. Abdomen soft, no tenderness. The right knee swelling has improved. No drainage. LABS: Hemoglobin is 13.1, white count 7.7, creatinine 0.7. Vancomycin trough low 12.4. Local culture with MRSA. DIAGNOSTIC IMPRESSION AND PLAN: Patient with MRSA right knee septic prepatellar bursitis status post bursectomy. Patient to continue vancomycin. Hopefully finish therapy with oral Bactrim DS and close outpatient follow up. MMODL / IJN: [id number] /
[2021-01-26 08:22] VITALS: BP 116/75; PULSE 71; RESP 16; TEMP 98.4
[2021-01-26] MEDS: HYDROcodone/APAP 5-325MG 1 EACH TAB PO PRN (09:21)
[2021-01-26] MEDS: VANCOMYCIN 1,250 MG in SODIUM CHLORIDE 0.9% 250 ML IVPB SCH (09:22)
--- NOTE | 2021-01-26 09:41 | P.PN ---
Subjective Progress Note Date: 01/26/21 This patient is a 35-year-old male who is status post incision and drainage of right knee prepatellar bursa on 01/23/[address] Prince. Today's postoperative day #3. Patient is examined bedside. He states his pain has improved significantly. Intraoperative cultures showing MRSA. He is able to ambulate without pain in the right lower extremity. He is doing well with no complaints. Patient tolerated his breakfast well. He denies chest pain, shortness breath, nausea, vomiting, fevers, chills. He has no concerns today. Vital signs stable. Objective - Vital Signs Vital signs: Vital Signs Temp 98.4 F 01/26/21 08:21 Pulse 71 01/26/21 08:21 Resp 16 01/26/21 08:21 BP 116/75 01/26/21 08:21 Pulse Ox 98 01/26/21 08:21 Intake & Output 01/25/21 01/26/21 01/26/21 18:59 06:59 18:59 Other: # Voids 4 3 # Bowel Movements 0 - Exam On examination, patient is sitting up in bed in no apparent distress. He was previously ambulating around room. He is alert and oriented 3. On inspection of the right knee, there is an incision over the prepatellar bursa with intact sutures. No drainage. Minimal erythema. Minimal swelling. No joint effusion. He is able to perform a straight leg raise. No pain with passive [id number] of the knee. Motor and sensory function intact of the right lower extremity. Right lower extremity is warm and well-perfused with brisk capillary refill. Calf is soft and nontender to palpation. - Labs CBC & Chem 7: 01/25/21 06:50 01/25/21 06:50 Labs: Abnormal Lab Results - Last 24 Hours (Table) 01/25/21 01/25/21 Range/Units 06:50 06:50 Hct 39.5 L (39.6-50.0) % Chloride 110 H (96-109) mmol/L Anion Gap 2.50 L (4.00-12.00) mmol/L BUN 7.0 L (9.0-27.0) mg/dL BUN/Creatinine Ratio 10.00 L (12.00-20.00) Ratio Microbiology - Last 24 Hours (Table) 01/23/21 17:20 Anaerobic Culture - Preliminary Aspirate 01/23/21 17:20 Anaerobic Culture - Preliminary Knee - Right 01/23/21 17:20 Gram Stain - Preliminary Knee - Right Wound Culture - Preliminary Presumptive MRSA 01/23/21 17:20 Gram Stain - Preliminary Aspirate Body Fluid Culture - Preliminary 01/21/21 12:41 Blood Culture - Preliminary Blood No Growth after 96 hours 01/21/21 12:33 Blood Culture - Preliminary Blood No Growth after 96 hours 01/22/21 01:30 Anaerobic Culture - Preliminary Knee - Right 01/22/21 01:30 Gram Stain - Final Knee - Right Wound Culture - Final Methicillin resist S. aureus Assessment and Plan Assessment: Status-post incision and drainage of right prepatellar bursa 01/23/21. Postoperative day #3. Plan: - Patient may weight-bear as tolerated on the right lower extremity. Dressing was changed bedside this morning. - Intra-op cultures showing MRSA. Continue antibiotics under the discretion of infectious disease. - Patient may be discharged when cleared from internal medicine and infectious disease, and outpatient antibiotics are determined.
--- NOTE | 2021-01-26 12:13 | P.DS ---
Providers Date of admission: 01/21/21 15:51 Expected date of discharge: 01/26/21 Attending physician: Louisa iDaz Consults: 01/21/21 15:53 Consult Physician Routine Consulting Provider: Vernon Powers Consult Reason/Comments: R knee pain Do you want consulting provider notified?: Yes 01/22/21 16:46 Consult Physician Routine Consulting Provider: Ammy Cruz Consult Reason/Comments: ? Knee abscess Do you want consulting provider notified?: Yes Primary care physician: Stated None Hospital Course: This is a 35-year-old male that presented to the emergency room with worsening right knee pain and swelling. Patient is a [place] and his symptoms started after working on his knees for approximately 3 hours wearing a knee pad week prior to presentation. Patient was evaluated in the ER and admitted to the hospital for further management of his medical problems noted below. 1. Right knee bursitis with cellulitis and abscess: Culture grew MRSA. Started IV antibiotic with IV cefazolin and vancomycin. CRP and ESR only mildly elevated. Status post I&D in the OR by orthopedic on 01/23 with wound VAC placement. Blood cultures negative. Doppler ultrasound was negative for DVT. Weight bearing as tolerated. Patient received 5 days of IV vancomycin here in the hospital. He will be discharged home to finish antibiotic course with Bactrim for another week. He will follow-up with the wound care clinic as directed. Patient Condition at Discharge: Fair Plan - Discharge Summary Discharge Rx Participant: Yes New Discharge Prescriptions: New Sulfamethox-Tmp 800-160Mg [Bactrim DS 800-160 mg] 1 tab PO Q12HR 7 Days #14 tab Discontinued Ibuprofen [Advil] 800 mg PO Q8HR PRN PRN Reason: Pain Discharge Medication List Sulfamethox-Tmp 800-160Mg [Bactrim DS 800-160 mg] 1 tab PO Q12HR 7 Days #14 tab 01/26/21 [Rx] Follow up Appointment(s)/Referral(s): None,Stated [Primary Care Provider] - 1-2 days Ammy Cruz MD [STAFF PHYSICIAN] - 1 Week Edis Prince MD [Medical Doctor] - As Needed Activity/Diet/Wound Care/Special Instructions: Patient may weight bear as tolerated on right lower extremity as tolerated. Wound care and antibiotics per Dr. Cruz. Discharge Disposition: HOME SELF-CARE
[2021-01-26] MEDS ORDERED: VANCOMYCIN 1,500 MG in SODIUM CHLORIDE 0.9% 250 ML IVPB SCH (17:00)
[2021-01-27] MEDS ORDERED: VANCOMYCIN TROUGH DUE 1 EACH MISC MISCELLANE ONE (08:00)
== END 2021-01-26 13:44 | disposition home or self-care (01) | DRG 501 ==
LOC: EC 11:53 → 4SSUR 15:51
PROVIDERS: ADMIT Internal Medicine; ATTEND Internal Medicine
PROC: 0S9C3ZX Drainage of Right Knee Joint, Percutaneous Approach, Diagnostic (ICD-10-PCS; principal; 2021-01-23 16:27)
PROC: 0LBQ0ZZ Excision of Right Knee Tendon, Open Approach (ICD-10-PCS; principal; 2021-01-23 16:27)
DX: M71.161 Other infective bursitis, right knee (principal); L03.115 Cellulitis of right lower limb; Z20.822 Contact with and (suspected) exposure to COVID-19; B95.62 Methicillin resistant Staphylococcus aureus infection as the cause of diseases classified elsewhere; R26.2 Difficulty in walking, not elsewhere classified
CPT/HCPCS: 36415; 80048; 80053; 80202; 82565; 83605; 85025; 85610; 85652; 85730; 86140; 87040; 87070; 87075; 87077; 87102; 87186; 87205; 87635; 99284

== ENCOUNTER → 2021-06-30 | Outpatient (CLI) | payer OTHER ==
[2021-06-30 14:39] LABS: Basophils # (A) 0.03 X 10*3/uL (0.00-0.10); Basophils % (A) 0.5 %; Eosinophils # (A) 0.06 X 10*3/uL (0.04-0.35); HCT 43.3 % (39.6-50.0); HGB 14.1 g/dL (13.0-17.0); Immature Grans, Automated 0.2 %; Lymphocytes # (A) 1.54 X 10*3/uL (0.90-5.00); Lymphocytes % (A) 26.5 %; MCH 29.2 pg (27.0-32.0); MCHC 32.6 g/dL (32.0-37.0); MCV 89.6 fL (80.0-97.0); Mean Platelet Volume 9.7 fL (9.5-12.2); Monocytes # (A) 0.49 X 10*3/uL (0.20-1.00); Monocytes % (A) 8.4 %; NRBC Per 100 WBC 0 /100 WBCS (0.0-0.0); Neutrophils # (A) 3.69 X 10*3/uL (1.80-7.70); Neutrophils % (A) 63.4 %; Platelet Count 311 X 10*3/uL (140-440); RBC 4.83 X 10*6/uL (4.40-5.60); RDW 12.7 % (11.5-14.5); WBC 5.82 X 10*3/uL (4.50-10.00)
[2021-06-30 15:46] LABS: Erythrocyte Sedimentation Rate 18 mm/Hr (0-15)
[2021-06-30 16:02] LABS: ALT 37 U/L (10-49); AST 37 U/L (14-35); African American GFR (CKD) 133.1 (60.0-200.0); Albumin 4.5 g/dL (3.8-4.9); Albumin/Globulin Ratio 1.64 (1.60-3.17); Alkaline Phosphatase 114 U/L (41-126); BUN/Creat Ratio 8.42 Ratio (12.00-20.00); C Reactive Protein <0.30 mg/dL (0.00-0.80); Calcium 8.9 mg/dL (8.7-10.3); Carbon Dioxide 22.1 mmol/L (20.0-27.5); Chloride 103 mmol/L (96-109); Globulin 2.8 g/dL (1.6-3.3); Glucose 103 mg/dL (70-110); Non-African American GFR(CKD) 114.9 (60.0-200.0); Phosphorus 2.7 mg/dL (2.4-5.1); Potassium 4.5 mmol/L (3.5-5.5); Sodium 139 mmol/L (135-145); Total Protein 7.3 g/dL (6.2-8.2)
[2021-06-30 16:03] LABS: Creatine Kinase 282 U/L (35-257)
[2021-06-30 16:11] LABS: Chol/HDL Ratio 5.79 Ratio; LDL Cholesterol,Calculated 167.1 mg/dL (0.0-131.0)
== END | disposition home or self-care (01) ==
LOC: LABWHC1 10:23
PROVIDERS: ATTEND Internal Medicine
DX: Z00.00 Encounter for general adult medical examination without abnormal findings (principal); D64.9 Anemia, unspecified; I10 Essential (primary) hypertension; E78.5 Hyperlipidemia, unspecified; E03.9 Hypothyroidism, unspecified; E55.9 Vitamin D deficiency, unspecified
CPT/HCPCS: 36415; 80053; 80061; 82306; 82550; 83036; 83735; 84100; 84443; 85025; 85652; 86140

== ENCOUNTER 2023-08-31 19:55 | Emergency (ER) | payer OTHER ==
[2023-08-31] MEDS: SULFAMETHOX-TMP 800-160MG 1 EACH TAB PO STA (20:16)
--- NOTE | 2023-08-31 20:17 | ED ---
General Adult HPI - General Chief complaint: Skin/Abscess/Foreign Body Stated complaint: infection/mrsa Time Seen by Provider: 08/31/23 20:04 Source: patient, RN notes reviewed, old records reviewed Mode of arrival: ambulatory Limitations: no limitations - History of Present Illness Initial comments: 37-year-old male presenting with erythema to the right knee. Patient has previous history of bursitis secondary to MRSA infection. He had previous incision and drainage several years prior. He noticed some erythema at the site without drainage over the past 24 hours. No fever. Patient is a nondiabetic. - Related Data Previous Rx's Medication Instructions Recorded Sulfamethox-Tmp 800-160Mg [Bactrim 1 tab PO Q12HR 7 Days #14 tab 01/26/21 DS 800-160 mg] Sulfamethox-Tmp 800-160Mg [Bactrim 1 tab PO Q12HR #28 tab 08/31/23 DS 800-160 mg] Allergies Allergy/AdvReac Type Severity Reaction Status Date / Time No Known Allergies Allergy Verified 08/31/23 19:59 Review of Systems ROS Statement: Those systems with pertinent positive or pertinent negative responses have been documented in the HPI. ROS Other: All systems not noted in ROS Statement are negative. Past Medical History Past Medical History: No Reported History History of Any Multi-Drug Resistant Organisms: MRSA Date of last positivie culture/infection: 01/23/21 MDRO Source:: Right Knee Past Surgical History: No Surgical Hx Reported Past Psychological History: No Psychological Hx Reported Smoking Status: Never smoker Past Alcohol Use History: None Reported Past Drug Use History: Marijuana General Exam Limitations: no limitations General appearance: alert, in no apparent distress Head exam: Present: atraumatic, normocephalic Eye exam: Present: normal appearance, PERRL ENT exam: Present: normal exam Neck exam: Present: normal inspection. Absent: tenderness, meningismus Respiratory exam: Present: normal lung sounds bilaterally. Absent: respiratory distress, wheezes Cardiovascular Exam: Present: regular rate, normal rhythm GI/Abdominal exam: Present: soft. Absent: distended Extremities exam: Present: other (Erythema to the anterior inferior knee approximately 2 cm x 3 cm, no induration, no fluctuance, no drainable abscess) Course Vital Signs 08/31/23 19:56 Temperature 98.3 F Pulse Rate 77 Respiratory 18 Rate Blood Pressure 154/92 O2 Sat by Pulse 99 Oximetry Medical Decision Making - Medical Decision Making Was pt. sent in by a medical professional or institution (FELY Oakes, MOBILE BATTERY TECHNICIAN, urgent care, hospital, or skilled nursing...) When possible be specific @ -No Did you speak to anyone other than the patient for history (EMS, parent, family, police, friend...)? What history was obtained from this source @ -No Did you review nursing and triage notes (agree or disagree)? Why? @ -I reviewed and agree with nursing and triage notes Were old charts reviewed (outside hosp., previous admission, EMS record, old EKG, old radiological studies, urgent care reports/EKG's, skilled nursing records)? Report findings @ -No old charts were reviewed Differential diagnosis: Bursitis, septic arthritis, cellulitis, abscess EKG interpreted by me (3pts min.). @ -As above X-rays interpreted by me (1pt min.). @ -None done CT interpreted by me (1pt min.). @ -None done U/S interpreted by me (1pt. min.). @ -None done What testing was considered but not performed or refused? (CT, X-rays, U/S, labs)? Why? @ -None What meds were considered but not given or refused? Why? @ -None Did you discuss the management of the patient with other professionals (professionals i.e. FELY Oakes, MOBILE BATTERY TECHNICIAN, lab, RT, psych nurse, licensed social worker, wallet assembler, teacher, accounts officer, case operator)? Give summary @ -No Was smoking cessation discussed for >3mins.? @ -No Was critical care preformed (if so, how long)? @ -No Were there social determinants of health that impacted care today? How? (Homelessness, low income, unemployed, alcoholism, drug addiction, transportation, low edu. Level, literacy, decrease access to med. care, skilled nursing, rehab)? @ -No Was there de-escalation of care discussed even if they declined (Discuss DNR or withdrawal of care, Hospice)? DNR status @ -No What co-morbidities impacted this encounter? (DM, HTN, Smoking, COPD, CAD, Cancer, CVA, ARF, Chemo, Hep., AIDS, mental health diagnosis, sleep apnea, morbid obesity)? @ -Prior MRSA bursitis Was patient admitted / discharged? Hospital course, mention meds given and route, prescriptions, significant lab abnormalities, going to OR and other pertinent info. @ -Patient has an area of erythema over previous incision from infected bursa this was several years ago. There is no fluctuance, no induration, no drainable abscess. Patient started on Bactrim and given return parameters he will monitor the site closely. Undiagnosed new problem with uncertain prognosis? @ -No Drug Therapy requiring intensive monitoring for toxicity (Heparin, Nitro, Insulin, Cardizem)? @ -No Were any procedures done? @ -No Diagnosis/symptom? @ -Cellulitis Acute, or Chronic, or Acute on Chronic? @ -Acute Uncomplicated (without systemic symptoms) or Complicated (systemic symptoms)? @ -Default Side effects of treatment? @ -No Exacerbation, Progression, or Severe Exacerbation? @ -No Poses a threat to life or bodily function? How? (Chest pain, [place], [place], pneumonia, PE, COPD, DKA, ARF, appy, cholecystitis, CVA, Diverticulitis, Homicidal, [place] icidal, threat to staff... and all critical care pts) @ -No Disposition Clinical Impression: Cellulitis of right leg Disposition: HOME SELF-CARE Condition: Good Prescriptions: Sulfamethox-Tmp 800-160Mg [Bactrim DS 800-160 mg] 1 tab PO Q12HR #28 tab Is patient prescribed a controlled substance at d/c from ED?: No Referrals: None,Stated [Primary Care Provider] - 1-2 days Time of Disposition: 20:17
[2023-08-31 20:33] VITALS: BP 154/99; PULSE 82; RESP 16; TEMP 98.7
== END 2023-08-31 20:25 | disposition home or self-care (01) ==
LOC: EC 19:55
DX: L03.115 Cellulitis of right lower limb (principal); Z86.14 Personal history of Methicillin resistant Staphylococcus aureus infection
CPT/HCPCS: 99282